=== PATIENT | male | born 1955 | race Caucasian/White ===

== ENCOUNTER → 2024-05-27 07:39 | Outpatient (REF) | payer MEDICARE, OTHER, SELFPAY ==
[2024-05-27 08:41] LABS: % Basophils 0.5 % (0-2); % Eosinophils 4.9 % (0-6); % Immature Granulocytes 0.2 % (0-0.5); % Lymphocytes 16.6 % (20.5-51.1); % Monocytes 11.4 % (1.7-9.3); % Neutrophils 66.4 % (42.2-75.2); Absolute Eosinophils 0.3 10^3/uL (0-0.7); Absolute Monocytes 0.7 10^3/uL (0.1-0.6); Absolute Neutrophils 3.9 10^3/uL (1.4-6.5); Hematocrit 42.5 % (39.0-52.0); Hemoglobin 14.3 g/dL (13.0-18.0); Mean Corp Hgb Conc. 33.6 g/dL (33.0-37.0); Mean Corpuscular Hgb 28.5 pg (27.0-31.0); Mean Corpuscular Volume 84.8 fL (80.0-94.0); Mean Platelet Volume 9.4 fL (7.4-10.4); Nucleated Red Blood Cells % 0 % (-); Platelet Count 195 10^3/uL (130-400); Red Blood Cell Count 5.01 10^6/uL (4.70-6.10); Red Cell Dist. Width 13.5 % (11.5-14.5); White Blood Cell Count 5.9 10^3/uL (4.8-10.8)
[2024-05-27 09:01] LABS: ALT (SGPT) 31 U/L (0-50); AST (SGOT) 40 U/L (17-59); Albumin 4.5 g/dl (3.5-5.0); Alkaline Phosphatase 65 U/L (38-126); Blood Urea Nitrogen 22 mg/dl (9-20); Calcium 9.9 mg/dl (8.4-10.2); Carbon Dioxide 26 mmol/L (22-30); Chloride 102 mmol/L (98-107); Glucose 98 mg/dl (70-99); HDL Cholesterol 75 mg/dl; LDL Cholesterol, Calculated 107 mg/dl; Sodium 139 mmol/L (135-145); Total Bilirubin 0.9 mg/dl (0.2-1.3); Total Cholesterol 197 mg/dl (50-199); Total Protein 6.8 g/dl (6.3-8.2); Triglyceride 75 mg/dl (10-149); Very Low Density Lipoprotein 15 mg/dl (0-30); eGFR > 60.00
[2024-05-27 09:31] LABS: PSA, Total - Screen 4.73 ng/ml (0.0-4.0)
== END ==
LOC: REG 07:39
PROVIDERS: ATTENDING PHYSICIAN Internal Medicine; OTHER PHYSICIAN Specialist
DX: E78.5 Hyperlipidemia, unspecified (principal); I10 Essential (primary) hypertension; Z12.5 Encounter for screening for malignant neoplasm of prostate
CPT/HCPCS: 36415; 80053; 80061; 84443; 85025; G0103

== ENCOUNTER → 2024-06-20 06:47 | Outpatient (REF) | payer MEDICARE, OTHER, SELFPAY | LOC: RCS 06:47 | PROVIDERS: ATTENDING PHYSICIAN Internal Medicine | DX: R01.1 Cardiac murmur, unspecified (principal) | CPT/HCPCS: 93306 ==

== ENCOUNTER 2024-10-23 06:18 | Day surgery (SDC) | payer MEDICARE, OTHER, SELFPAY | END 2024-10-23 12:17 | disposition home or self-care (01) | LOC: GI 06:18 | PROVIDERS: ATTENDING PHYSICIAN Internal Medicine Gastroenterology | DX: Z12.11 Encounter for screening for malignant neoplasm of colon (principal); K64.8 Other hemorrhoids | CPT/HCPCS: G0121 ==

== ENCOUNTER 2025-03-04 11:38 | Emergency (ER) | payer MEDICARE, OTHER, SELFPAY ==
[2025-03-04 11:41] VITALS: BP 138/90
--- NOTE | 2025-03-04 12:22 | ED.MUSCINJ ---
HPI-Injury
General
Chief Complaint: Musculo-Skeletal Complaint
Source: patient
Exam Limitations: none
Time Seen by Provider: 03/04/25 11:56
History of Present Illness-Injury
Initial Injury comments:
69-year-old male presents complaining of left foot pain and a head strike after falling off a ladder approximately 6 foot. He landed right on his foot and then hit his head. He notes an abrasion to the head. No loss of conscious. Is not
anticoagulated. He notes pain and swelling to the left foot. No other complaints
Past History
Past History
ED Past Medical History: HTN and Hypercholesterolemia
ED Past Surgical History: Brain
Social History
Tobacco: Non-smoker
Drug: None
Personal:
Living: with family
Employment: Other
Family History
Family History: Other
Phy Exam
Physical Exam
Physical Exam:
General: Well-appearing male no acute respiratory distress
Musculoskeletal exam: The spine is nontender. The left foot is tender over the calcaneus the medial and lateral malleoli are nontender the tibia and hip are nontender with good range of motion.
Skin is intact but swollen around the left
Vascular 2+ DP pulse left foot
Neurologic: Alert and oriented good sensation left foot
Injury Course
Orders/Labs/Results
Orders:
Orders
03/04/25 11:39
Ankle, left 3 view CR [CR Ankle - Left Min 3 Views ] Urgent
Comment:
Reason For Exam: pain to left ankle
03/04/25 12:20
CT Head W/o Iv Contrast Urgent
Comment:
Reason For Exam: fall from height
03/04/25 12:26
CT Lower Ext W/o Iv Cont Lt Urgent
Comment:
Reason For Exam: calcaneous fracture
03/04/25 12:27
Oxycodone/Acetaminophen [Percocet 5/325] 1 tablet PO NOW STA
MDM/Problems Addressed
Differential Diagnosis Includes:
Fall from height with left foot pain. X-rays which were personally reviewed demonstrated calcaneus fracture. There was a head strike. CT of the head is pending. Discussed imaging with orthopedics.
*Pulse Oximetry
SaO2: 98
Oxygen Mode of Delivery: Room air
Patient hypoxic: no
*Critical Care Note
Total Time (30-74mins, 75-104mins- exclusive of procedures): Not Applicable
Update Note
Update Note:
CT of head negative for acute finding. The patient's left leg was wrapped in a well-padded posterior short leg splint using Christiano bandages cast padding and OCL. I discussed findings with orthopedics who recommended strict nonweightbearing. He will
follow-up with them for further evaluation.
ED Attending Note
-
Portions of this chart may have been created with voice recognition software.� Occasional wrong word or��sound alike� substitutions may have occurred due to the inherent limitations of voice recognition software.
Discharge Plan
Departure
Patient Disposition: Home (Routine Discharge)
Date of Disposition: 03/04/25
Time of Disposition: 15:49
Patient with high blood pressure during this ER visit?: No
Discharge Problem:
calcaneous fracture
Instructions: Muscle and Bone Pain (DC)
Prescriptions:
New
oxycodone-acetaminophen [Percocet] 5-325 mg tablet
1 tab PO TID PRN (Reason: Pain) Qty: 10 0RF
No Action
cyclobenzaprine 10 MG tablet
10 mg PO R TIDPRN PRN (Reason: muscle spasm) Qty: 0 0RF
Referrals:
Romaine Guillen I., DO [Family Provider, Internal Medicine]
Nigel Hatch DPM [Active, Podiatry]
Activity Restrictions/Additional Instructions:
Keep splint on and dry. Elevate foot for swelling. Use crutches for support. Do not bear any weight on left leg. Follow-up with orthopedics for next available appointment
Discharge Date and Time
Print Language: PALAUAN
[2025-03-04] MEDS: PERCOCET 5/325 1 TABLET PO (12:38)
== END 2025-03-04 16:00 | disposition home or self-care (01) ==
LOC: EMR 11:38
PROVIDERS: EMERGENCY PHYSICIAN Emergency Medicine; FAMILY PHYSICIAN Internal Medicine
DX: S92.002A Unspecified fracture of left calcaneus, initial encounter for closed fracture (principal); S00.91XA Abrasion of unspecified part of head, initial encounter; W11.XXXA Fall on and from ladder, initial encounter; I10 Essential (primary) hypertension; E78.00 Pure hypercholesterolemia, unspecified
CPT/HCPCS: 29515; 99284; 70450; 73610; 73700

== ENCOUNTER 2025-03-09 16:48 | Emergency (ER) | payer MEDICARE, OTHER, SELFPAY ==
[2025-03-09 16:52] VITALS: BP 128/86
--- NOTE | 2025-03-09 18:55 | ED.SKININJ ---
HPI-Injury
General
Chief Complaint: Skin Problem
Source: patient
Exam Limitations: none
Time Seen by Provider: 03/09/25 17:59
History of Present Illness-Injury
Initial Injury comments:
69-year-old male presents for reevaluation. He was seen here 5 days ago for calcaneus fracture. He is due to see the foot and ankle specialist in 2 days but he failed and losing within his splint. He wanted to get checked. He called orthopedics
and they advised he come here. No blood thinners. His pain is minimal
Past History
Past History
ED Past Medical History: HTN and Hypercholesterolemia
ED Past Surgical History: Brain
Social History
Tobacco: Non-smoker
Drug: None
Personal:
Living: with family
Employment: Other
Family History
Family History: Other
Phy Exam
Physical Exam
Physical Exam:
General: Well-appearing male no acute distress
HEENT normocephalic atraumatic skin:
There are blisters noted of the medial aspect and posterior aspect of the ankle some of which have ruptured some are still intact. No surrounding erythema
Musculoskeletal exam: Moderate swelling about the left heel
Neurologic: Good sensation left foot
Vascular: 2+ DP pulse left foot brisk cap refill to the toes
Course
Orders/Labs/Results
Orders:
Orders
03/09/25 18:54
Doxycycline [Vibramycin] 100 mg PO NOW STA
Vital Signs
Initial and Last Documented VS:
Initial Vital Signs
Temp Pulse Resp BP Pulse Ox
98.4 F 87 16 128/86 99
03/09/25 16:52 03/09/25 16:52 03/09/25 16:52 03/09/25 16:52 03/09/25 16:52
Last Documented Vital Signs
Temp Pulse Resp BP Pulse Ox
98.4 F 87 16 128/86 99
03/09/25 16:52 03/09/25 16:52 03/09/25 16:52 03/09/25 16:52 03/09/25 16:52
MDM/Problems Addressed
Differential Diagnosis Includes:
Patient with fracture blister secondary to the swelling obvious calcaneus fracture. No significant surrounding erythema. Systemically without fevers vital signs are stable. Secondary to the fact some of the blisters opened these were covered with
Xeroform but will treat with doxycycline to prevent infection given the underlying fracture. Xeroform dressing was applied as well as a well-padded splint using gauze gauze wrap with Christiano bandage and splint material. I did discuss these findings
with orthopedics who saw the pictures of the blisters and they were in agreement with the plan he will continue to follow-up with an ankle specialist in 2 days
*Pulse Oximetry
SaO2: 99
Oxygen Mode of Delivery: Room air
Patient hypoxic: no
*Critical Care Note
Total Time (30-74mins, 75-104mins- exclusive of procedures): Not Applicable
ED Attending Note
-
Portions of this chart may have been created with voice recognition software.� Occasional wrong word or��sound alike� substitutions may have occurred due to the inherent limitations of voice recognition software.
Discharge Plan
Departure
Patient Disposition: Home (Routine Discharge)
Date of Disposition: 03/09/25
Time of Disposition: 18:59
Patient with high blood pressure during this ER visit?: No
Discharge Problem:
Blister over site of fracture of bone
Instructions: Wound Care (DC)
Prescriptions:
New
doxycycline hyclate 100 mg tablet
100 mg PO BID Qty: 14 0RF
No Action
cyclobenzaprine 10 MG tablet
10 mg PO R TIDPRN PRN (Reason: muscle spasm) Qty: 0 0RF
oxycodone-acetaminophen [Percocet] 5-325 mg tablet
1 tab PO TID PRN (Reason: Pain) Qty: 10 0RF
Referrals:
Romaine Guillen I., DO [Family Provider, Internal Medicine]
Activity Restrictions/Additional Instructions:
Keep splint on and dry. Elevate for swelling. Follow-up with foot and ankle specialist as planned in 2 days. Take antibiotics
Interventions
Interventions:
ED-Skin Assessment Last Done: 03/09/25 18:51
Discharge Date and Time
Print Language: LATVIAN
[2025-03-09] MEDS: VIBRAMYCIN 100 MG PO (19:03)
== END 2025-03-09 19:50 | disposition home or self-care (01) ==
LOC: EMR 16:48
PROVIDERS: EMERGENCY PHYSICIAN Emergency Medicine; FAMILY PHYSICIAN Internal Medicine
DX: S90.522A Blister (nonthermal), left ankle, initial encounter (principal); X58.XXXA Exposure to other specified factors, initial encounter; I10 Essential (primary) hypertension; E78.00 Pure hypercholesterolemia, unspecified; Z87.81 Personal history of (healed) traumatic fracture
CPT/HCPCS: 99283

== ENCOUNTER → 2025-07-08 07:39 | Outpatient (REF) | payer MEDICARE, OTHER, SELFPAY ==
[2025-07-08 08:14] LABS: Urine Character Clear (Clear)
[2025-07-08 08:14] LABS: Hematocrit 42.4 % (39.0-52.0); Hemoglobin 14.0 g/dL (13.0-18.0); Mean Corp Hgb Conc. 33.0 g/dL (33.0-37.0); Mean Corpuscular Volume 88.9 fL (80.0-94.0); Nucleated Red Blood Cells % 0 % (-); Platelet Count 196 10^3/uL (130-400); Red Cell Dist. Width 13.4 % (11.5-14.5)
[2025-07-08 08:52] LABS: ALT (SGPT) 29 U/L (0-50); AST (SGOT) 33 U/L (17-59); Albumin 4.4 g/dl (3.5-5.0); Alkaline Phosphatase 74 U/L (38-126); Blood Urea Nitrogen 21 mg/dl (9-20); Calcium 9.5 mg/dl (8.4-10.2); Carbon Dioxide 27 mmol/L (22-30); Chloride 104 mmol/L (98-107); Glucose 101 mg/dl (70-99); HDL Cholesterol 68 mg/dl; LDL Cholesterol, Calculated 105 mg/dl; Potassium 4.0 mmol/L (3.5-5.1); Sodium 136 mmol/L (135-145); Total Protein 7.0 g/dl (6.3-8.2); Very Low Density Lipoprotein 9 mg/dl (0-30); eGFR > 60.00
== END ==
LOC: REG 07:39
PROVIDERS: ATTENDING PHYSICIAN Internal Medicine
DX: E78.5 Hyperlipidemia, unspecified (principal); I10 Essential (primary) hypertension; R97.20 Elevated prostate specific antigen [PSA]; N40.3 Nodular prostate with lower urinary tract symptoms
CPT/HCPCS: 36415; 80053; 80061; 81003; 84153; 84154; 85025